=== PATIENT | female | born 1995 | race Caucasian/White ===

== ENCOUNTER 2021-01-13 08:20 | Outpatient (CLI) | payer OTHER ==
[~2021-01-13 08:20] MED LIST: TOPAMAX50 MG PO
== END 2021-01-13 08:24 | disposition home or self-care (01) ==
LOC: NUCLEAR 08:20
PROVIDERS: ATTEND General Practice
DX: I20.9 Angina pectoris, unspecified (principal)
CPT/HCPCS: 78452; 93017; A9500; J0153